=== PATIENT | female | born 1970 | race African-American/Black ===

== ENCOUNTER 2023-04-22 10:09 | Emergency (ER) | payer OTHER ==
[~2023-04-22] VITALS: Ht 167.6 cm; Wt 72.6 kg
[2023-04-22 11:22] VITALS: BP 128/78; PULSE 59; RESP 18; TEMP 99; O2SAT 98
[2023-04-22] MEDS ORDERED: CAPS1ADH5 TP (13:22)
== END 2023-04-22 13:41 | disposition home or self-care (01) ==
LOC: MED 10:09
DX: S39.012A Strain of muscle, fascia and tendon of lower back, initial encounter (principal); S40.011A Contusion of right shoulder, initial encounter; V49.88XA Car occupant (driver) (passenger) injured in other specified transport accidents, initial encounter; Y93.89 Activity, other specified; Y92.89 Other specified places as the place of occurrence of the external cause; Y99.8 Other external cause status
CPT/HCPCS: 99282